=== PATIENT | female | born 1940 | race Caucasian/White ===

== ENCOUNTER 2018-09-04 07:35 | Outpatient (CLI) ==
--- NOTE | 2018-09-04 08:37 | CT ---
EXAM: CT abdomen pelvis without contrast HISTORY: Epigastric pain COMPARISON: None TECHNIQUE: CT abdomen pelvis performed without intravenous contrast. Coronal and sagittal reformatt ed images obtained. FINDINGS: Mild bibasilar subsegmental atelectasis and/or scarring. No free air. No acute abnormali ties of the bones. Mild chronic loss of height L2. Degenerative change in the spine. Heart normal in size. Evaluation organ parenchyma limited without contrast. Two hypodense liver lesions on image s 19 and 21 measuring 1.0 cm. There is a gallstone. Pancreas unremarkable. Granulomas calcificatio n in the spleen. Spleen otherwise unremarkable. Small calcification right adrenal gland may relate to prior infection or insult. Left renal gland unremarkable. 3 mm nonobstructing right renal calcul us. Additional vascular calcifications present in the right kidney. No hydronephrosis. No calculi visualized in normal course of the ureters. Bladder decompressed and poorly evaluated. Uterus unrem arkable. Aorta normal in caliber. Extensive atherosclerosis of the aorta and is branches. Stomach unremarkable. No dilated loops small bowel. Appendix appears normal. Colon unremarkable. No lympha denopathy or ascites. No inflammatory stranding identified in the abdomen pelvis. IMPRESSION: 1. No acute abnormality identified in the abdomen or pelvis. 2. Right nephrolithiasis. No hydronephrosis. 3. Cholelithiasis. 4. Extensive atherosclerosis. 5. Two 1 cm liver lesions that are indeterminate. Recommend correlation with ultrasound.
== END 2018-09-04 07:36 | disposition home or self-care (01) ==
LOC: RAD 07:35
PROVIDERS: ATTEND Family Medicine
DX: R10.13 Epigastric pain (principal); R63.4 Abnormal weight loss
CPT/HCPCS: 74176

== ENCOUNTER 2018-09-26 10:53 | Day surgery (SDC) | payer OTHER ==
[2018-09-26 11:10] VITALS: TEMP 98
[2018-09-26] MEDS ORDERED: DIPRIVAN 20 ML VIAL IVP ONE (12:25)
[2018-09-26] MEDS ORDERED: VERSED ONE (12:25)
[2018-09-26] MEDS ORDERED: LIDOCAINE HCL 2% LUER-JET ONE (12:25)
--- NOTE | 2018-09-27 13:18 | OP ---
INDICATIONS FOR PROCEDURE: 78-year-old female presents for endoscopy. She was having intermittent nausea and vomiting. She is having less vomiting since starting Protonix. She was taking NSAIDS. MEDICATIONS: SEE ANESTHESIA NOTES. PROCEDURE: ENDOSCOPY RAQUEL BIOPSY. REPORT: The risks, benefits, alternatives and limitations were discussed in detail with the patient. Informed consent was obtained. After adequate sedation was achieved, the video endoscope was introduced in the posterior pharynx and esophagus under direct vision and I easily advanced down to the second portion of the duodenum. I then slowly withdrew. The duodenal mucosa appeared unremarkable. At the pyloric channel there was close to a 8 to 9 mm ulceration. This had begun to epithilealize indicating that it was healing over. The antrum and body were relatively unremarkable. Two biopsies from the antral wall and from the body were obtained for H. Pylori testing. The scope was retroflexed to look at the cardia and fundus which was unremarkable. The scope was anteflexed and withdrawn back through the esophagus which was unremarkable. The patient tolerated the procedure well with stable vital signs and pulse oximetry throughout. IMPRESSION: 1. PYLORIC CHANNEL ULCERATION. RECOMMENDATIONS: 1. Continue daily Protonix. 2. Avoid nonsteroidal agents. 3. Await H. Pylori; if positive will initiate treatment. 4. Repeat endoscopy in approximately 2 to 3 months to assure resolution. CC: DR. ERI OWUSU
[2018-09-28 14:08] VITALS: BP 128/78
== END 2018-09-26 14:00 | disposition home or self-care (01) ==
LOC: SURG 10:53
PROVIDERS: ATTEND Internal Medicine Gastroenterology
DX: R11.2 Nausea with vomiting, unspecified (principal); R63.4 Abnormal weight loss; K25.9 Gastric ulcer, unspecified as acute or chronic, without hemorrhage or perforation
CPT/HCPCS: 87339

== ENCOUNTER 2018-12-05 08:37 | Outpatient (CLI) ==
--- NOTE | 2018-12-05 09:52 | DEXA ---
EXAM: Bone densitometry. History: Osteopenia. Findings: Evaluation of the lumbar spine reveals a total bone mineral density of 1.242 grams per centimeter squ ared with T-score of 0.5. Evaluation of the left hip reveals a total bone mineral density of 0.635 grams per centimeter squared with T-score of negative 3.0. Evaluation of the right hip reveals a total bone mineral density of 0.632 grams per centimeter square d with T-score of negative 3.0. FRAX score: 10-year probability for major osteoporotic fracture is 19.2% and 10.7% for hip fracture. Impression: 1. Normal bone mineral density of the lumbar spine. 2. Osteoporosis of bilateral hips
== END 2018-12-05 08:38 | disposition home or self-care (01) ==
LOC: RAD 08:37
PROVIDERS: ATTEND Family Medicine
DX: M81.0 Age-related osteoporosis without current pathological fracture (principal); M85.80 Other specified disorders of bone density and structure, unspecified site

== ENCOUNTER 2018-12-19 06:29 | Day surgery (SDC) | payer OTHER ==
[2018-12-19 07:23] VITALS: TEMP 98.6
[2018-12-19] MEDS ORDERED: LIDOCAINE 1% 20 ML MDV ID STA (07:23)
[2018-12-19 13:37] VITALS: BP 132/67
--- NOTE | 2018-12-19 14:38 | OP ---
INDICATIONS FOR PROCEDURE: 78-year-old female presents for endoscopy exam. She was found to have a pyloric channel ulceration in September. She presents for followup endoscopy. She was having nausea and vomiting at that time. She was also having regurgitation. Those symptoms have improved. She has also had her gallbladder removed. She has been treated for H. Pylori. MEDICATIONS: SEE ANESTHESIA NOTES. PROCEDURE: ENDOSCOPY, RAQUEL BIOPSY. REPORT: The risks, benefits, alternatives and limitations were discussed in detail with the patient. Informed consent was obtained. After adequate sedation was achieved, the video endoscope was introduced in the posterior pharynx and esophagus under direct vision and easily advanced down to the second portion of the duodenum. I then slowly withdrew. The duodenal mucosa appeared unremarkable as did the duodenal bulb. The antrum and body were relatively unremarkable. The area of the pylorus where the prior ulceration was revealed a scar but no other abnormalities. The antrum and body appeared mildly atrophic. Two biopsies from the antral wall and body obtained for H. Pylori testing. The scope was retroflexed to look at cardia and fundus which was relatively unremarkable. The scope was anteflexed and withdrawn back to the esophagus which was unremarkable. The patient tolerated the procedure well with stable vital signs and pulse oximetry throughout. IMPRESSION: 1. RESOLVED PYLORIC CHANNEL ULCER 2. MILD ATROPHIC APPEARING GASTRITIS RECOMMENDATIONS: 1. Avoid NSAIDS. 2. Await H. Pylori. If positive, will initiate treatment. 3. At this point okay to use Pantoprazole as needed instead of daily. 4. Will see her back in the office as needed. CC: DR. CHICHI OWUSU
== END 2018-12-19 09:30 | disposition home or self-care (01) ==
LOC: SURG 06:29
PROVIDERS: ATTEND Internal Medicine Gastroenterology
DX: R11.2 Nausea with vomiting, unspecified (principal); K25.9 Gastric ulcer, unspecified as acute or chronic, without hemorrhage or perforation
CPT/HCPCS: 87339

== ENCOUNTER 2019-02-22 11:10 | Emergency (ER) | payer OTHER ==
[2019-02-22 11:15] VITALS: BP 148/74; TEMP 98.6
--- NOTE | 2019-02-22 12:00 | ED.PDOC ---
General ED Provider: Dr. ERI BAKER Chief Complaint: Shoulder Pain/Injury Stated Complaint: Lt shoulder pain. Strained earlier in week after lifting gargage bags carrying to trash pile Time Seen by Physician: 11:45 Mode of Arrival: Walk-In Information Source: Patient Primary Care Provider: ERI CAMERON Referred to ED by: PCP Nursing and Triage Documentation Reviewed and Agree: Yes Does patient meet sepsis criteria?: No System Inflammatory Response Syndrome: Not Applicable Sepsis Protocol: For patient's 13 years and over: Temp is 96.8 and below OR 101 and greater Pulse >90 BPM Resp >20/minute Acutely Altered Mental Status Are patient's symptoms suggestive of a new infection, such as: -Pneumonia -Skin, Soft Tissue -Endocarditis -UTI -Bone, Joint Infection -Implantable Device -Acute Abdominal Infection -Wound Infection -Meningitis -Blood Stream Catheter Infection -Unknown Musculoskeletal Complaint Exam - Shoulder Pain Complaint/Exam Mechanism of Injury: Reports: No known trauma Onset/Duration: 3 days Symptoms Are: Still present Timing: Intermittent Initial Severity: Moderate Current Severity: Mild Location: Reports: Discrete (lt anterion extending down ant humerus) Character: Reports: Dull, Aching, Stiffness Alleviating: Reports: None Aggravating: Reports: Movement Associated Signs and Symptoms: Reports: Swelling, Redness, Bruising, Fever, Weakness, Numbness Related History: Denies: Similar episode DVT Risk Factors: Reports: None Septic Arthritis Risk Factors: Reports: None Related Surgical History: Reports: None Shoulder Findings: Present: Rotation (results in tenderness). Absent: Swelling , Ecchymosis Review of Systems - Review Of Systems Constitutional: Reports: No symptoms Eyes: Reports: No symptoms Ears, Nose, Mouth, Throat: Reports: No symptoms Respiratory: Reports: No symptoms Cardiac: Reports: No symptoms GI: Reports: No symptoms : Reports: No symptoms Musculoskeletal: Reports: No symptoms Skin: Reports: No symptoms Neurological: Reports: No symptoms Endocrine: Reports: No symptoms Hematologic/Lymphatic: Reports: No symptoms All Other Systems: Reviewed and Negative Past Medical History - Past Medical History Previously Healthy: Yes Endocrine: Reports: None Cardiovascular: Reports: None Respiratory: Reports: None Hematological: Reports: None Gastrointestinal: Reports: None Genitourinary: Reports: None Neuro/Psych: Reports: None Musculoskeletal: Reports: None Cancer: Reports: None Last Menstrual Period: N/A - Surgical History General Surgical History: Reports: None - Family History Family History: Reports: None - Social History Smoking Status: Current every day smoker, Heavy tobacco smoker Hx Substance Use: No Alcohol Screening: None - Immunizations Tetanus Shot up to Date: Yes Physical Exam - Physical Exam Appearance: Well-appearing, No pain distress, Well-nourished, Thin Pain Distress: None Eyes: LIBERTY, EOMI, Conjunctiva clear ENT: Ears normal, Nose normal, Oropharynx normal Respiratory: Airway patent, Breath sounds clear, Breath sounds equal, Respirations nonlabored Cardiovascular: RRR, Pulses normal, No rub, No murmur GI/: Soft, Nontender, No masses, Bowel sounds normal, No Organomegaly Musculoskeletal: Normal strength, ROM intact, No edema, No calf tenderness Skin: Warm, Dry, Normal color Neurological: Sensation intact, Motor intact, Reflexes intact, Cranial nerves intact, Alert, Oriented Psychiatric: Affect appropriate, Mood appropriate Critical Care Note - Critical Care Note Total Time (mins): 0 Course - Course Orders, Labs, Meds: Orders Category Date Time Status SHOULDER, RIGHT MIN 2V Stat RADS 02/22/19 11:58 Completed Vital Signs: Temp Pulse Resp BP Pulse Ox 02/22/19 11:10 98.6 F 115 H 18 148/74 H 95 Departure - Departure Time of Disposition: 13:30 Disposition: HOME SELF-CARE Discharge Problem: Right shoulder strain Instructions: Rotator Cuff Injury (ED) Condition: Good Pt referred to PMD for follow-up: Yes (See Dr Cameron in next week) IPMP verified?: No Additional Instructions: Ice ELevate Avoid excessive use Ibuprofen 200 mg 1-2 tabs 4 times a day as needed Allergies/Adverse Reactions: Allergies Penicillins Adverse Reaction (Verified 02/22/19 11:15) Home Medications: Ambulatory Orders Spironolactone [Aldactone] 50 mg PO DAILY 09/25/18 Tramadol HCl [Ultram] 50 mg PO Q8HR PRN 09/25/18 Aspirin [Aspirin EC] 1 tab PO DAILY 12/13/18 Disposition Discussed With: Patient
--- NOTE | 2019-02-22 12:59 | DI ---
EXAM: Right shoulder three views HISTORY: Shoulder pain. FINDINGS: Trabecular markings are accentuated consistent with at least mild, diffuse demineralization . There is at least mild glenohumeral joint osteoarthritis. Moderate AC joint osteoarthritis is pre sent. There is no fracture, joint separation/dislocation/subluxation. Soft tissues are within bridgette l limits. IMPRESSION: 1. Arthropathy of the shoulder. No acute fracture or dislocation.
== END 2019-02-22 13:36 | disposition home or self-care (01) ==
LOC: ED 11:10
DX: S46.911A Strain of unspecified muscle, fascia and tendon at shoulder and upper arm level, right arm, initial encounter (principal); X50.9XXA Other and unspecified overexertion or strenuous movements or postures, initial encounter; F17.210 Nicotine dependence, cigarettes, uncomplicated
CPT/HCPCS: 99282